=== PATIENT | female | born 1975 | race Caucasian/White ===

== ENCOUNTER → 2019-06-25 11:23 | Outpatient (CLI) | payer SELFPAY ==
[2019-06-25 15:35] LABS: Apearance,Urine Clear (Clear); Color,Urine Yellow (Yellow)
[2019-06-25 15:36] LABS: Bilirubin,Urine Negative (Negative); Blood, Urine 3+ (Negative); Glucose,Urine (UA) 250 (Negative); Ketones,Urine Negative (Negative); Protein,Urine Trace (Negative)
[2019-06-25 15:37] LABS: UTC Leukocyte Esterase,Urine 1+ (Negative); UTC Nitrate,Urine Negative (Negative); Urobilinogen,Urine 0.2 EU/dl (0.2)
== END ==
PROVIDERS: PCP Nurse Practitioner Family; Visit Provider Nurse Practitioner Family
DX: Z02.4 Encounter for examination for driving license (principal)
CPT/HCPCS: 81003

== ENCOUNTER 2019-12-10 09:50 | Emergency (ER) | payer MEDICAID, SELFPAY ==
[2019-12-10 09:51] VITALS: BP 134/78; PULSE 79; RESP 18; TEMP 36.9; O2SAT 99; BMI 23.1
--- NOTE | 2019-12-10 10:07 | XR_ITS ---
PROCEDURE: XR HAND RT MIN 3V CLINICAL INDICATION: PAIN COMPARISON: No exams were available for comparison FINDINGS: No fracture or dislocation. No lytic or blastic change. There is normal mineralization. The joint spaces are well-preserved. There is minor degenerative change of the 1st carpometacarpal joint. The soft tissues are normal. Other findings:None. IMPRESSION: No acute findings. Dictated by: Dr. Nando Price MD 12/10/2019 11:17 Dr. Nando Price MD in [place] 12/10/2019 11:17
--- NOTE | 2019-12-10 10:07 | XR_ITS ---
PROCEDURE: XR WRIST RT MIN 3V CLINICAL INDICATION: PAIN COMPARISON: No exams were available for comparison FINDINGS: Distal radius and ulna appear intact. There is a small radiolucent lesion diametaphyseal zone of the radius likely a small bone cyst. The carpal bones appear intact. The pronator quadratus fat pad is well seen which is a normal finding tending to exclude an effusion within the joint. There is moderate spurring at the base of the 1st metacarpal. IMPRESSION: No acute findings. Dictated by: Dr. Nando Price MD 12/10/2019 11:16 Dr. Nando Price MD in [place] 12/10/2019 11:16
--- NOTE | 2019-12-10 10:20 | HMH.EDGENADL ---
ED Disposition Clinical Impression: Acute carpal tunnel syndrome of right wrist Disposition: Home, Self-Care Condition on Discharge: Good Instructions: DI for Acute Pain -- Adult Referrals: Karena Zarate [Primary Care Provider] - - Critical Care Critical Care Time: No Attestation: On 12/10/19, the high probability of a clinically significant, sudden or life threatening deterioration of the following system(s) required my full and direct attention, intervention and personal management. The time I documented below is in addition to time spent performing reported procedures but includes the following listed in this critical care notation. Medical Decision Making - Medical Records Medical records reviewed: Yes: I reviewed the patient's medical records. - Mejia Inquiry Pt receiving controlled substance: No Vital Signs: 12/10/19 09:51 Temperature 98.4 F Temperature Source Oral Pulse Rate [Left] 79 Respiratory Rate 18 Blood Pressure [Right Arm] 134/78 Blood Pressure Mean [Right Arm] 96 Blood Pressure Source [Right Arm] Automatic Cuff 02 Sat by Pulse Oximetry 99 Oxygen Delivery Method Room Air - Lab Data Lab results reviewed: Yes: I reviewed the patient's lab results. Orders (Tests/Meds): ORDERS Category Date Time Status Hand XR right minimum 3 views [XR hand RT min 3V] Stat Exams 12/10/19 10:07 Ordered XR wrist RT min 3V Stat Exams 12/10/19 10:07 Ordered General Adult HPI - General Chief complaint: PAIN Stated complaint: right hand pain Time Seen by Provider: 12/10/19 10:20 Mode of Arrival: Ambulatory Limitations: No Limitations Description of Symptoms (Recalled from ER Triage Doc. 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 STATES SHE BELIEVES THIS IS CAUSING HER PAIN AND DISCOMFORT TO HER RIGHT WRIST AND HAND AREA. NUMBNESS AND TINGLING WHEN SHE MOVES. ROM IS LIMITED, BUT NO SIGNS OR HISTORY OF TRAUMA - History of Present Illness HPI narrative: A 44-year-old female presents emergency department complaining about right hand pain and numbness and tingling. 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 Patient also states that this pain is worse at night when she sleeping and complains of severe numbness and tingling in the in the first second and third digits. Patient does rate this pain 6 out of 10 and classifies a sharp numb almost like a burning tingling sensation. Alleviating factors include shaking her hands down to her side. - Related Data Home Medications Medication Instructions Recorded Confirmed Albuterol HFA Inhaler 1 - 2 puffs INHALATION Q4HP PRN 05/04/18 05/25/19 Fenofibrate 160 mg PO DAILY 05/04/18 05/25/19 Ipratropium [place] [Atrovent Hfa 1 puff IH Q4HP PRN 05/04/18 06/09/19 Inh] Metformin HCl [Metformin HCl ER] 500 mg PO BID 05/04/18 05/25/19 Previous Rx's Medication Instructions Recorded Cyclobenzaprine HCl [Flexeril 10mg 10 mg PO TID PRN #15 tab 06/09/19 tablet] Etodolac [Etodolac 200mg Cap*] 200 mg PO Q6H PRN #20 cap 06/09/19 Allergies Allergy/AdvReac Type Severity Reaction Status Date / Time No Known Allergies Allergy Verified 05/04/18 21:36 [facility] History - Hepatitis A Screen Drug use history?: No High risk sexual behaviors?: No History of sexually transmitted infection?: No Currently employed?: No Childcare worker?: No Do you have indoor plumbing?: Yes Do you have electricity?: Yes Attestation statement:: This patient has been screened for Hepatitis A risk factors. I have reviewed the patient's past medical history: Yes Medical History: Reports:: Diabetes Mellitus Type 2 Denies:: Cancer, Diabetes Mellitus Type 1, MRSA Amputation: No - Social History Smoking Status: Current every day smoker Tobacco Type: cigarettes # Packs/Day (cigarettes): 1 Alcohol Intake: never Occupational Status: ot
[2019-12-10 10:58] VITALS: BP 138/80; PULSE 77; RESP 18; TEMP 36.9; O2SAT 99
== END 2019-12-10 10:58 | disposition home or self-care (01) ==
PROVIDERS: Emergency Provider Family Medicine; PCP Nurse Practitioner Family
DX: G56.01 Carpal tunnel syndrome, right upper limb (principal); E11.9 Type 2 diabetes mellitus without complications; F17.210 Nicotine dependence, cigarettes, uncomplicated; Z79.84 Long term (current) use of oral hypoglycemic drugs
CPT/HCPCS: 73110; 73130; 96372; 99282

== ENCOUNTER 2020-03-17 16:12 | Emergency (ER) | payer MEDICAID, SELFPAY ==
--- NOTE | 2020-03-17 16:39 | HMH.EDUTC ---
[facility] [place] Disposition Clinical Impression: Exposure to COVID-19 virus Disposition: Home, Self-Care Condition on Discharge: Good Instructions: Preventing the Spread of Coronavirus Discharge Instructions Additional Instructions: Drink plenty of fluids. Take tylenol for pain or fever. Return if you begin to have difficulty breathing. Follow up with your regular doctor. GO TO THE ER FOR ANY WORSENING SYMPTOMS Referrals: Karena Zarate [Primary Care Provider] - Medical Decision Making - Medical Records Medical records reviewed: No: I reviewed the patient's medical records. - Mejia Inquiry Pt receiving controlled substance: No Vital Signs: 03/17/20 16:40 03/17/20 17:18 Temperature 98.4 F 98.4 F Temperature Source Oral Pulse Rate 76 Pulse Rate [Right Brachial] 76 Respiratory Rate 18 18 Blood Pressure 130/81 Blood Pressure [Right Arm] 130/81 Blood Pressure Mean [Right Arm] 97 Blood Pressure Source [Right Arm] Automatic Cuff Blood Pressure Position [Right Arm] Sitting 02 Sat by Pulse Oximetry 100 Oxygen Delivery Method Room Air Orders (Tests/Meds): ORDERS Category Date Time Status Covid-19 Nasal PCR ([facility]) Routine Lab 03/17/20 16:[address] [facility] [place] HPI - General Stated complaint: covid test Time Seen by Provider: 03/17/20 16:39 - History of Present Illness Provider Complaint: She was exposed to covid 2 days ago. She denies any symptoms but she wants to be tested. - Related Data Home Medications Medication Instructions Recorded Confirmed Albuterol HFA Inhaler 1 - 2 puffs INHALATION Q4HP PRN 05/04/18 05/25/19 Fenofibrate 160 mg PO DAILY 05/04/18 05/25/19 Ipratropium [place] [Atrovent Hfa 1 puff IH Q4HP PRN 05/04/18 06/09/19 Inh] Metformin HCl [Metformin HCl ER] 500 mg PO BID 05/04/18 05/25/19 Previous Rx's Medication Instructions Recorded Cyclobenzaprine HCl [Flexeril 10mg 10 mg PO TID PRN #15 tab 06/09/19 tablet] Etodolac [Etodolac 200mg Cap*] 200 mg PO Q6H PRN #20 cap 06/09/19 Allergies Allergy/AdvReac Type Severity Reaction Status Date / Time No Known Allergies Allergy Verified 05/04/18 21:36 [facility] History - Hepatitis A Screen Attestation statement:: This patient has been screened for Hepatitis A risk factors. I have reviewed the patient's past medical history: Yes Medical History: Reports:: Diabetes Mellitus Type 2 Denies:: Cancer, Diabetes Mellitus Type 1, MRSA Amputation: No - Social History Smoking Status: Current every day smoker Tobacco Type: cigarettes # Packs/Day (cigarettes): 1 Alcohol Intake: never Occupational Status: other ROS Obtained: Yes All systems reviewed & no additional complaints - Constitutional Constitutional: Reports system reviewed and no additional complaints, except as docu - Eyes Eyes: Reports system reviewed and no additional complaints, except as docu - ENT Ears, Nose, Mouth, and Throat: Reports system reviewed and no additional complaints, except as docu - Cardiovascular Cardiovascular: Reports system reviewed and no additional complaints, except as docu - Respiratory Respiratory: Yes system reviewed and no additional complaints, except as docu - Gastrointestinal Gastrointestingal: Reports: system reviewed and no additional complaints, except as docu Physical Exam - General General appearance: alert, in no apparent distress - Head Head exam: atraumatic, normocephalic, normal inspection - Eye Eye exam: Present: normal appearance, PERRL, EOMI - ENT ENT exam: Present: normal exam, normal oropharynx, mucous membranes moist, TM's normal bilaterally, normal external ear exam - Neck Neck exam: Present: normal inspection, full ROM, trachea midline. Absent: meningismus, lymphadenopathy - Chest Chest inspection: Present: normal inspection, symmetric chest wall rise. Absent: tenderness - Respiratory Respiratory exam: Present: normal lung sounds bilaterally. Absent: res
[2020-03-17 16:40] VITALS: BP 130/81; PULSE 76; RESP 18; TEMP 36.9; O2SAT 100; BMI 26.7
[2020-03-17 17:18] VITALS: BP 130/81; PULSE 76; RESP 18; TEMP 36.9; O2SAT 100
== END 2020-03-17 17:20 | disposition home or self-care (01) ==
PROVIDERS: Emergency Provider Nurse Practitioner Family; PCP Nurse Practitioner Family
DX: Z20.828 Contact with and (suspected) exposure to other viral communicable diseases (principal); E11.9 Type 2 diabetes mellitus without complications; F17.210 Nicotine dependence, cigarettes, uncomplicated; Z79.899 Other long term (current) drug therapy
CPT/HCPCS: 99201; U0003

== ENCOUNTER 2020-07-15 11:37 | Emergency (ER) | payer MEDICAID, SELFPAY ==
[2020-07-15 11:45] VITALS: BP 141/93; PULSE 73; RESP 19; TEMP 36.6; O2SAT 98; BMI 29.2
[2020-07-15 11:51] VITALS: BP 148/65; PULSE 76; RESP 18; O2SAT 98; BMI 29.2
--- NOTE | 2020-07-15 12:10 | HMH.EDUTC ---
[facility] [place] Impression: Acute bronchitis Qualifiers: Bronchitis organism: unspecified organism Qualified Code(s): J20.9 - Acute bronchitis, unspecified Sinusitis Qualifiers: Sinusitis location: unspecified location Chronicity: unspecified Qualified Code(s): J32.9 - Chronic sinusitis, unspecified Disposition: Home, Self-Care Condition on Discharge: Good Instructions: Sinusitis, Acute Bronchitis, DI for Sinusitis Additional Instructions: ? Start antibiotic today. Be sure to complete entire prescription even if feeling better ? Monitor temp. Tylenol every 4 hours as needed and / or ibuprofen every 6 hours as needed ( As long as your primary care physician has told you that it ok to take both. For fever/aches/pains ER if no less than 101 despite Tylenol or Motrin ? Humidifier/vaporizer or hot steamy shower ? Inhaler every 4-6 hours as needed like we discussed. If unsure how to use it, ask pharmacist to demonstrate how. Should help open airways and improve cough, wheezing, and shortness of breath ? Mucinex during the day for your cough and cough suppressant only at night. Be sure to drink lots of water. Insurance may not cover a prescriptions for mucinex. Might be cheaper to get 400mg tablets and take 2 tablet in the morning, mid-day and evening with lots of water. Follow up IMMEDIATELY for new or worsening of symptoms OR no noticeable improvement over the next 48-72 hours. 911 immediately for any life threatening symptoms such as chest pain or difficulty breathing Prescriptions: Azithromycin [Z-Hiram 250mg Tab] 250 mg PO DIRECTED #6 tab Transmission Status: Received by [facility] Referrals: Karena Zarate [Primary Care Provider] - As needed Time of Disposition: 12:40 Medical Decision Making - Mejia Inquiry Pt receiving controlled substance: No Mejia was queried for this patient: No Vital Signs: 07/15/20 11:45 07/15/20 11:51 Temperature 97.9 F Temperature Source Oral Pulse Rate [Left Radial] 73 76 Respiratory Rate 19 18 Blood Pressure [Right Arm] 141/93 H 148/65 H Blood Pressure Mean [Right Arm] 109 92 Blood Pressure Source [Right Arm] Automatic Cuff Automatic Cuff Blood Pressure Position [Right Arm] Sitting Sitting 02 Sat by Pulse Oximetry 98 98 Oxygen Delivery Method Room Air Room Air Orders (Tests/Meds): ED MEDICATIONS Discontinued Medications Generic Name Dose Route Start Last Admin Trade Name Erickson PRN Reason Stop Dose Admin Methylprednisolone Sodium Succinate 125 mg 07/15/20 12:20 07/15/20 12:29 Methylprednisolone Sod Succ 125mg Vial IM 07/15/20 12:21 125 mg ONCE ONE Administration ORDERS Category Date Time Status Covid-19 Nasal PCR ([facility]) Routine Lab 07/15/20 12:11 Ordered Medical Decision Narrative: Patient reports that diabetes is well controlled with Medication States that she has taken SoluMedrol in the past without reactions or complications and aware that it may raise her FSBS but then should return to normal over the next few days [facility] [place] - General Stated complaint: sore throat, headache Time Seen by Provider: 07/15/20 12:10 Mode of Arrival: Ambulatory Source of Information: Patient Limitations: No Limitations Description of Symptoms (Recalled from Triage Doc. by RN): pt states that she lost her voice and when she talks she her vocal cords hurt. - History of Present Illness Provider Complaint: Patient states that she has been having sinus pain and pressure for over a week State for the last couple of days she has loss her voice and feels like her vocal cords hurt when she talks States that family was concerned and wanted her to get checked out. - Related Data Home Medications Medication Instructions Recorded Confirmed Albuterol HFA Inhaler 1 - 2 puffs INHALATION Q4HP PRN 05/04/18 05/25/19 Fenofibrate 160 mg PO DAILY 05/04/18 05/25/19 Ipratropium [place] [Atrovent Hfa 1 puff IH Q4HP PRN 05/04/18 06/09/19 Inh] Met
[2020-07-15 12:45] VITALS: BP 148/65; PULSE 76; RESP 19; TEMP 36.6; O2SAT 98
== END 2020-07-15 12:50 | disposition home or self-care (01) ==
PROVIDERS: Emergency Provider Nurse Practitioner; PCP Nurse Practitioner Family
DX: J20.9 Acute bronchitis, unspecified (principal); J32.9 Chronic sinusitis, unspecified; E11.9 Type 2 diabetes mellitus without complications; F17.210 Nicotine dependence, cigarettes, uncomplicated; Z20.822 Contact with and (suspected) exposure to COVID-19
CPT/HCPCS: 96372; 99202; G0463; U0003

== ENCOUNTER 2020-09-20 15:05 | Emergency (ER) | payer MEDICAID, SELFPAY ==
[2020-09-20 15:25] VITALS: BP 142/98; PULSE 94; RESP 24; TEMP 37; O2SAT 97; BMI 31.1
[2020-09-20 15:27] VITALS: BMI 31.1
--- NOTE | 2020-09-20 15:56 | HMH.EDUTC ---
[facility] [place] Disposition Clinical Impression: COPD exacerbation, Right carpal tunnel syndrome Disposition: Home, Self-Care Condition on Discharge: Good Instructions: Carpal Tunnel Syndrome, DI for Chronic Obstructive Pulmonary Disease Additional Instructions: Drink plenty of fluids. Take tylenol or ibuprofen for pain or fever. Take the medications as directed. Follow up with your regular doctor. GO TO THE ER FOR ANY WORSENING SYMPTOMS Don't start the oral steroids until tomorrow, since you had the shot here today. Prescriptions: Albuterol Sulfate [Albuterol 0.083% 2.5mg/3mL neb] 2.5 mg IH Q6HP PRN 30 Days #90 neb PRN Reason: Shortness Of Breath Transmission Status: Received by [facility] # Albuterol Sulfate [Albuterol Sulfate Hfa] 2 puffs IH Q6HP PRN 30 Days #1 [email or web address] PRN Reason: Shortness Of Breath Transmission Status: Received by [facility] # methylPREDNISolone [Medrol] 4 mg PO DIRECTED 6 Days #21 tab.ds.pk Transmission Status: Received by [facility] # Benzonatate [Tessalon [place] 100mg Cap] 100 mg PO TIDP PRN #30 cap PRN Reason: Cough Transmission Status: Received by [facility] # Azithromycin [Z-Hiram 250mg Tab*] 250 mg PO UD DOSE PK #6 tab Transmission Status: Received by [facility] # Referrals: Karena Zarate [Primary Care Provider] - Nate Felder MD [Staff Physician] - Forms: Work/School Release Time of Disposition: 16:23 Medical Decision Making - Medical Records Medical records reviewed: No: I reviewed the patient's medical records. - Mejia Inquiry Pt receiving controlled substance: No Vital Signs: 09/20/20 15:25 09/20/20 16:24 Temperature 98.6 F 98.6 F Temperature Source Oral Oral Pulse Rate 94 H Pulse Rate [Right Radial] 94 H Respiratory Rate 24 24 Blood Pressure 142/98 H Blood Pressure [Right Arm] 142/98 H Blood Pressure Mean [Right Arm] 112 02 Sat by Pulse Oximetry 97 Oxygen Delivery Method Room Air Orders (Tests/Meds): ED MEDICATIONS Discontinued Medications Generic Name Dose Route Start Last Admin Trade Name Erickson PRN Reason Stop Dose Admin Albuterol Sulfate 2.5 mg 09/20/20 15:28 09/20/20 15:29 Albuterol 0.083% 2.5 Mg/3 Ml Neb IH 09/20/20 15:29 2.5 mg ONCE ONE Administration Ceftriaxone Sodium 1 gm 09/20/20 16:02 09/20/20 16:21 Ceftriaxone 1gm Vial IM 09/20/20 16:03 1 gm ONCE ONE Administration Protocol Lidocaine HCl 0 ml 09/20/20 16:02 09/20/20 16:21 Lidocaine 1% 5ml Pf Vial IM 09/20/20 16:03 2 ml ONCE ONE Administration Methylprednisolone Sodium Succinate 125 mg 09/20/20 16:02 09/20/20 16:21 Methylprednisolone Sod Succ 125mg Vial IM 09/20/20 16:03 125 mg ONCE ONE Administration [facility] [place] HPI - General Stated complaint: carpal tunnel/allergy issues Time Seen by Provider: 09/20/20 15:57 Mode of Arrival: Ambulatory Source of Information: Patient Limitations: No Limitations Description of Symptoms (Recalled from Triage Doc. by RN): SOA, chest pain earlier in the day, feels like she is breathing through a straw. Carpel Tunnel Pain in right wrist, seen in ED here previously. HEENT Symptoms (Recalled from RN notes): No Resp Symptoms (Recalled from RN notes): Yes Skin Symptoms (Recalled from RN notes): No MS Symptoms (Recalled from RN notes): Yes Functional Status (Recalled from RN notes): na - History of Present Illness Provider Complaint: She states that for the past 1 week she has been having a worsening cough. She has a history of copd. She has also been having right hand pain and numbness. She has a history of carpal tunnel syndrome in that wrist. She denies any fever/chills/body aches. - Related Data Home Medications Medication Instructions Recorded Confirmed Albuterol HFA Inhaler 1 - 2 puffs INHALATION Q4HP PRN 05/04/18 05/25/19 Fenofibrate 160 mg PO DAILY 05/04/18 05/25/19 Ipratropium
[2020-09-20 16:24] VITALS: BP 142/98; PULSE 94; RESP 24; TEMP 37; O2SAT 97
== END 2020-09-20 16:39 | disposition home or self-care (01) ==
PROVIDERS: Emergency Provider Nurse Practitioner Family; PCP Nurse Practitioner Family
DX: J44.1 Chronic obstructive pulmonary disease with (acute) exacerbation (principal); G56.01 Carpal tunnel syndrome, right upper limb; E11.9 Type 2 diabetes mellitus without complications; Z79.899 Other long term (current) drug therapy
CPT/HCPCS: 96372; 99202; G0463

== ENCOUNTER 2020-10-19 17:19 | Emergency (ER) | payer MEDICAID, SELFPAY ==
[2020-10-19 17:20] VITALS: BP 140/84; PULSE 76; RESP 18; TEMP 36.7; O2SAT 97; BMI 31.1
--- NOTE | 2020-10-19 17:42 | HMH.EDGENADL ---
ED Disposition Clinical Impression: Vaginal bleeding Disposition: Home, Self-Care Condition on Discharge: Good Instructions: DI for Vaginal Bleeding Additional Instructions: Call Dr. Benoit tomorrow to arrange follow-up. Referrals: Sweta Anderson APRN [Primary Care Provider] - - Critical Care Critical Care Time: No Attestation: On , the high probability of a clinically significant, sudden or life threatening deterioration of the following system(s) required my full and direct attention, intervention and personal management. The time I documented below is in addition to time spent performing reported procedures but includes the following listed in this critical care notation. Medical Decision Making - Mejia Inquiry Pt receiving controlled substance: No Vital Signs: 10/19/20 17:20 10/19/20 17:49 Temperature 98.1 F Temperature Source Oral Pulse Rate 72 Pulse Rate [Right] 76 Respiratory Rate 18 Blood Pressure 110/62 Blood Pressure [Right Arm] 140/84 Blood Pressure Mean 78 Blood Pressure Mean [Right Arm] 102 02 Sat by Pulse Oximetry 97 99 Oxygen Delivery Method Room Air - Lab Data Lab Results 10/19/20 17:49: WBC 13.6 H, RBC 4.12 L, Hgb 12.2, Hct 34.9 L, MCV 84.8, MCH 29.7, MCHC 35.0, RDW 12.9, Plt Count 339, MPV 8.1, Neut % (Auto) 74.1, Lymph % (Auto) 18.4, [place] % (Auto) 5.2, Eos % (Auto) 2.0, Baso % (Auto) 0.3, Neut # (Auto) 10.1 H, Lymph # (Auto) 2.5, [place] # (Auto) 0.7, Eos # (Auto) 0.3, Baso # (Auto) 0.0 10/19/20 17:49: Sodium 136, Potassium 3.6, Chloride 103, Carbon Dioxide 25, Anion Gap 11.6, BUN 9, Creatinine 0.70, Estimated Creat Clear 127, Estimated GFR 92, Est GFR ( Amer) 111, Glucose 233 H, Calcium 8.5, Total Bilirubin 0.2, AST 25, ALT 25, Alkaline Phosphatase 129 H, Total Protein 6.0 L, Albumin 3.6, Globulin 2.4, Albumin/Globulin Ratio 1.5 10/19/20 17:49: Troponin I < 0.01 10/19/20 17:49: Serum HCG, Qual Negative Result diagrams: 10/19/20 17:49 10/19/20 17:49 - ECG Data Tracing #1 EKG interpreted by Guillermo Carr MD: Rhythm: sinus Rate: 72 [place]: normal Ectopy: none Conduction: First-degree AV block ST Segment Changes: none T Wave Changes: none Q Waves: none No evidence of acute ischemia or injury Medical Decision Narrative: 6:30 PM: Patient initially declined pelvic examination but now has decided that she wants a pelvic examination. Says she thinks she has a boil on her vulva. She just noticed a tender bump on the in that area today when she wipes. Has not noticed it before. No spontaneous drainage. 1.5 cm fleshy lesion left perineum without definite fluctuance. No overlying erythema or exfoliation. No spontaneous drainage. Patient requested the area be lanced. General Adult HPI - General Chief complaint: Vaginal Bleeding Stated complaint: tired, bruising, nausea, excessive menustral bleed Time Seen by Provider: 10/19/20 17:58 Mode of Arrival: Family Vehicle Limitations: No Limitations Description of Symptoms (Recalled from ER Triage Doc. by RN): Patient c/o vaginal bleeding for more than the last month but worse in the last 4 days. Pt reports on Friday she had a biospy performed on her uterus. Pt reports since then her bleeding has become even worse. Pt reports she has soaked through 10 tampons today. Pt also c/o general weakness, nausea and a painful area on her labia. - History of Present Illness HPI narrative: Patient states that she had a uterine ablation 8 years ago. She has had regular vaginal bleeding ever since then until the past month or so. She says that she had a Pap smear that was abnormal. She had a cervical biopsy. She has had increased bleeding ever since then. She says that Dr. Benoit, her master barber, who would perform the biopsy looked up and there and told her that the biopsy site was healing and he could not tell where the bleeding was coming from but some put some medication up and there to try and stop the bleeding.
[2020-10-19 17:49] VITALS: BP 110/62; PULSE 72; O2SAT 99
[2020-10-19 17:59] LABS: Basophils % 0.3 % (0.1-2.0); Eosinophils # 0.3 K/mm3 (0.0-0.4); Hematocrit 34.9 % (37.0-47.0); Hemoglobin 12.2 g/dL (12.2-16.2); Lymphocytes # 2.5 K/mm3 (0.7-4.5); Lymphocytes % 18.4 % (10-50); Mean Corpuscular Hemoglobin 29.7 pg (27.0-31.2); Mean Corpuscular Volume 84.8 fl (81-99); Mean Platelet Volume 8.1 fl (7.4-10.4); Monocytes # 0.7 K/mm3 (0.1-1.0); Monocytes % 5.2 % (1.7-9.3); Neutrophils # 10.1 K/mm3 (1.8-7.8); Neutrophils % 74.1 % (37.0-80.0); Platelet Count 339 K/mm3 (142-424); Red Blood Count 4.12 M/mm3 (4.20-5.40); Red Cell Distribution Width 12.9 % (11.5-17.5); White Blood Count 13.6 K/mm3 (4.8-10.8)
[2020-10-19 18:08] LABS: Alanine Aminotransferase 25 U/L (12-78); Albumin Level 3.6 g/dl (3.5-5.0); Albumin/Globulin Ratio 1.5 (1.1-1.8); Alkaline Phosphatase 129 U/L (38-126); Anion Gap 11.6 mEq/L (5-15); Aspartate Amino Transferase 25 U/L (14-36); Bilirubin,Total 0.2 mg/dl (0.2-1.3); Blood Urea Nitrogen 9 mg/dl (7-17); Calcium 8.5 mg/dl (8.4-10.2); Carbon Dioxide 25 mmol/L (22.0-30.0); Chloride 103 mmol/L (98-107); Creatinine Clearance Estimated 127 mL/min (50-200); Estimated Glomerular Filt Rate 92 ml/min (>60); GFR (African American) 111 ML/MIN (>60); Globulin 2.4 g/dL (1.3-3.2); Glucose 233 mg/dl (74-100); Potassium 3.6 mmoL/L (3.5-5.1); Sodium 136 mmol/L (136-145)
--- NOTE | 2020-10-19 18:15 | ECG_ITS ---
APPROVED REPORT Exam: Resting ECG HR:72 bpm ECG Measurements Heart Rate 72 AXES AK 218 P 59 QRSd 74 QRS 67 QT 414 T 61 QTc 453 Conclusion Sinus rhythm with 1st degree AV block Low voltage QRS Borderline ECG Electronically signed by : Robert Sutton, 10/20/2020 15:58:43
[2020-10-19 18:39] LABS: Troponin I < 0.01 ng/ml (0.00-0.034)
--- NOTE | 2020-10-19 18:48 | PC.NURSE ---
Assisted MD with pelvic exam. Pt tolerated well.
[2020-10-19 19:11] LABS: HCG Qualitative, Serum Negative (Negative)
[2020-10-19 19:15] VITALS: BP 127/68; PULSE 68; RESP 16; O2SAT 98
[2020-10-19 19:24] VITALS: BP 131/82; PULSE 74; RESP 16; TEMP 36.6; O2SAT 96
== END 2020-10-19 19:32 | disposition home or self-care (01) ==
PROVIDERS: Emergency Provider Emergency Medicine; PCP Nurse Practitioner
DX: N76.4 Abscess of vulva (principal); E11.9 Type 2 diabetes mellitus without complications; F17.210 Nicotine dependence, cigarettes, uncomplicated
CPT/HCPCS: 56405; 80053; 84484; 84703; 85025; 93005; 99282